=== PATIENT | female | born 1995 | race American Indian/Alaskan Native ===

== ENCOUNTER 2017-05-06 18:49 | Outpatient (CLI) | payer MEDICAID ==
[2017-05-06] MEDS ORDERED: LACTATED RINGERS 1,000 ML IV ONE (19:23)
[2017-05-06 20:07] VITALS: BP 117/58
[2017-05-06] MEDS ORDERED: VISTARIL PO PRN (20:10)
[2017-05-06 20:35] LABS: Mucus,Urine 3+ /HPF
[2017-05-06 20:52] LABS: Bilirubin,Urine NEG (Negative); Blood,Urine NEG (Negative); Ketones,Urine TR mg/dL (Negative); Leukocyte Esterase,Urine NEG (Negative); Nitrite,Urine NEG (Negative); Protein,Urine <15 mg/dL mg/dL (Negative)
== END 2017-05-06 20:53 | disposition home or self-care (01) ==
LOC: TRG 18:49
PROVIDERS: ATTEND Obstetrics & Gynecology
DX: O47.03 False labor before 37 completed weeks of gestation, third trimester (principal); Z3A.34 34 weeks gestation of pregnancy
CPT/HCPCS: 59025; 81001; 96360; J7120; Q0177

== ENCOUNTER 2017-06-13 14:24 | Outpatient (CLI) | payer MEDICAID ==
[2017-06-13 14:45] VITALS: BP 133/76
[2017-06-13] MEDS ORDERED: VISTARIL PO ONE (18:00)
== END 2017-06-13 18:00 | disposition home or self-care (01) ==
LOC: TRG 14:24
PROVIDERS: ATTEND Obstetrics & Gynecology
DX: O47.1 False labor at or after 37 completed weeks of gestation (principal); Z3A.39 39 weeks gestation of pregnancy
CPT/HCPCS: 59025; Q0177

== ENCOUNTER 2017-06-15 01:36 | Outpatient (CLI) | payer MEDICAID ==
[2017-06-15 01:48] VITALS: BP 127/77
== END 2017-06-15 03:06 | disposition home or self-care (01) ==
LOC: TRG 01:36
PROVIDERS: ATTEND Obstetrics & Gynecology
DX: O62.9 Abnormality of forces of labor, unspecified (principal); Z3A.39 39 weeks gestation of pregnancy
CPT/HCPCS: 59025